=== PATIENT | female | born 1990 | race Caucasian/White ===

== ENCOUNTER 2022-01-23 17:33 | Emergency (ER) | payer SELFPAY ==
--- NOTE | 2022-01-23 17:41 | ED.FEMALEGU ---
HPI - Female Genitourinary General Chief complaint: Urogenital-Female Stated complaint: Urinary Problem Time Seen by Provider: 01/23/22 17:48 Source: patient Mode of arrival: ambulatory Limitations: no limitations History of Present Illness HPI Narrative: Oneida is a 31-year-old female patient presenting to clinic today with complaints of possible urinary tract infection x1 week. She reports she started taking some azo last week with having urinary frequency burning and urgency. She reports that her symptoms did improve however over the last day or 2 she has had some pain after urination. Review of Systems Review of Systems: Pertinent positives per HPI. Patient denies any fever, chills, rash, headache, visual changes, dizziness, cough, runny nose, sore throat, shortness of breath, chest pain, palpitations, nausea, vomiting, diarrhea, constipation, abdominal pain, PMFSH Comments At the time of my signature, I reviewed and agree with the nursing past medical, surgical, social, and family history. There is no relevant family history pertinent to the patient complaint. Exam Narrative: General: Well-developed, well nourished, in no apparent distress. Head: Normocephalic, atraumatic. Cardio: Regular rate and rhythm, s1 and s2 normal, no murmur appreciated. Resp: Clear to auscultation bilaterally, no rhonchi, rales, wheezing or rubs. Abdomen: Soft, pliable, bowel sounds present in all quadrants, non-tender to palpation, no organomegly, no CVAT tenderness. Course Course Emergency Course: Portions of this record may have been created with voice recognition software. Level of Care: Express Care Visit Vital Signs Vital signs: Vital Signs Temperature 36.8 C 01/23/22 17:44 Pulse Rate 107 H 01/23/22 17:44 Respiratory Rate 16 01/23/22 17:44 Blood Pressure 138/85 01/23/22 17:44 Pulse Oximetry 99 01/23/22 17:44 Oxygen Delivery Room Air 01/23/22 17:44 Temperature 36.8 C 01/23/22 17:44 Pulse Rate 107 H 01/23/22 17:44 Respiratory Rate 16 01/23/22 17:44 Blood Pressure 138/85 01/23/22 17:44 Pulse Oximetry 99 01/23/22 17:44 Oxygen Delivery Room Air 01/23/22 17:44 Vital signs reviewed MDM - Female Genitourinary MDM Narrative Medical decision making narrative: at the time of visit patient is resting comfortably on the exam table. Urinalysis shows 3+ leukocytes, trace of blood, and trace ketones. I will send in prescription for Bactrim DS. Supportive measures were discussed with the patient she voiced understanding of discharge instructions and agrees to treatment plan. Differential Diagnosis Differential diagnosis: Likely urinary tract infection and cystitis Lab Data Labs: Urine Glucose Negative Reference Range: Negative Urine Bilirubin Negative Reference Range: Negative Urine Ketone Trace Reference Range: Negative Urine Specific Cement 1.020 Reference Range:1.001-1.035 Urine Blood Trace Reference Range: Negative * * Urine pH 7.0 Reference Range: 5.0-9.0 Urine Protein Negative Reference Range: Negative Urine Urobilinogen 0.2 Reference Range: 0.2-1.0 Urine Nitrate Negative Reference Range: Negative Urine Leukocyte 3+ Reference Range: Negativ
[2022-01-23 17:44] VITALS: BP 138/85; PULSE 107; RESP 16; TEMP 36.8; O2SAT 99
== END 2022-01-23 17:55 | disposition home or self-care (01) ==
PROVIDERS: Emergency Provider Nurse Practitioner Family
DX: N30.01 Acute cystitis with hematuria (principal)
CPT/HCPCS: 81003; 87077; 87086; 87186; 99213; G0463